=== PATIENT | male | born 1985 | race American Indian/Alaskan Native ===

== ENCOUNTER 2017-06-14 19:17 | Emergency (ER) | payer SELFPAY ==
--- NOTE | 2017-06-15 00:33 | Emergency Department Report ---
ED Laceration HPI - HPI Chief Complaint: Laceration/Recheck/Suture Stated Complaint: laceration lft pinky finger Time Seen by Provider: 06/15/17 00:28 Occurred When: Today (12 noon 06/14/2017) Location: Upper Extremity (left small finger laceration) Severity: mild (09/15) Tetanus Status: Unknown Laceration Symptoms: Yes Pain (small finger around the laceration site), No Foreign Body Sensation, No Numbness, No Weakness Other History: She reports that he cut is left pinky finger when he was opening a can today. He said he put pressure dressing on site. Pain is 1 out of 10 with movement. He is unsure of his tetanus status. Denies any numbness or tingling. ED Review of Systems ROS: Stated complaint: laceration lft pinky finger Other details as noted in HPI Comment: All other systems reviewed and negative Constitutional: no symptoms reported Respiratory: no symptoms reported Cardiovascular: denies: chest pain, palpitations, edema, syncope Gastrointestinal: denies: nausea, vomiting Musculoskeletal: arthralgia. denies: back pain, joint swelling, myalgia Skin: other (laceration to left small finger) Neurological: denies: headache, numbness, paresthesias ED Past Medical Hx - Past Medical History Previous Medical History?: No - Surgical History Past Surgical History?: No - Family History Family history: no significant - Social History Smoking Status: Current Every Day Smoker Substance Use Type: None, Marijuana - Medications Home Medications: Home Medications Medication Instructions Recorded Confirmed Last Taken Type Cephalexin [Keflex] 500 mg PO Q8HR #21 cap 06/15/17 Unknown Rx Ibuprofen [Motrin] 600 mg PO Q8H PRN #15 tablet 06/15/17 Unknown Rx Laceration Physical Exam - Exam General: Vital signs noted. No distress. Alert and acting appropriately. This is a 32-year-old male well-nourished well-developed in no acute distress. Extremity: Patient with full range of motion to all extremities, no joint deformities. No signs of tendon injury. 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 CV: S1, S2. Regular rate and rhythm. No murmur Lungs: Clear to auscultate bilaterally, no rhonchi wheezes or rales. Wound Length (cm): 2 (irregular and stellate) Laceration Location: Upper Extremity (small finger at mid phalanx) Laceration Exam: Yes Normal Distal CMS (clubbing, cyanosis or edema. +2 pulses in all extremities), No Foreign Body, No Exposed Tendon, Vessel, or Nerve, No Tendon Injury ED Course Vital Signs 06/14/17 19:25 Temperature 98.7 F Pulse Rate 76 Respiratory 18 Rate Blood Pressure 132/77 O2 Sat by Pulse 97 Oximetry - Reevaluation(s) Reevaluation #1: 06/15/17 01:39 Patient given Boostrix 0.5 mL in emergency room the update tetanus and Keflex 500 mg for prevention of infection. See procedure note for laceration repair. - Laceration /Wound Repair Left Medial Palm Finger Wound Location: upper extremity (left small finger at mid phalanx at palmar side ) Wound Length (cm): 2 Wound's Depth, Shape: superficial, irregular, stellate Wound Explored: clean Irrigated w/ Saline (ccs): 450 Betadine Prep?: Yes Anesthesia: 1% Lidocaine Volume Anesthetic (ccs): 1 Wound Debrided: moderate Wound Repaired With: sutures Suture Size/Type: 3:0, proline Number of Sutures: 8 Layer Closure?: No Sterile Dressing Applied?: Yes Progress: Sterile dry bulky dressing placed the site. ED Medical Decision Making - Medical Decision Making ED course: Pt with laceration to left small finger. Laceration repair under sterile procedure please refer to procedure note for detail. Patient has no sign of tendon injury and was told to return in 7-10 days for suture removal. Patient would pressure dressing to side and told to not use his left hand to do any vigorous activity for the next 72 hours. Patient was given Boostrix 0.5 mL to update tetanus and Keflex 500 mg by mouth to prevent infection. See procedure note for laceration repair. Patient discharged home in stable condition to return to ER in 7-10 days to have stitches removed. He voiced understanding the discharge diagnosis and treatment plan. Discharged home a prescription for Keflex and Motrin Critical care attestation.: If time is entered above; I have spent that time in minutes in the direct care of this critically ill patient, excluding procedure time. ED Disposition Clinical Impression: Finger pain, left Laceration of finger of left hand without foreign body without damage to nail Qualifiers: Encounter type: initial encounter Finger: little finger Qualified Code(s): S61.217A - Laceration without foreign body of left little finger without damage to nail, initial encounter Injury of finger, superficial Qualifiers: Encounter type: initial encounter Qualified Code(s): S60.949A - Unspecified superficial injury of unspecified finger, initial encounter Disposition: TO HOME OR SELFCARE Is pt being admited?: No Does the pt Need Aspirin: No Condition: Stable Instructions: Finger Laceration (ED) Additional Instructions: Please take antibiotic as prescribed Return to emergency room in 7-10 days to have stitches removed Keepaffected area clean and dry. Avoid vigorous activity to left hand for the next 72 hours Take Motrin as prescribed for pain Prescriptions: Cephalexin [Keflex] 500 mg PO Q8HR #21 cap Ibuprofen [Motrin] 600 mg PO Q8H PRN #15 tablet PRN Reason: Pain Referrals: [facility] [place] [Outside] - 2-3 Days return to, emergency room [Other] - 7-10 days (To have stitches removed) Forms: Accompanied Note, Work/School Release Form(ED)
[2017-06-15] MEDS ORDERED: XYLOCAINE 1% MPF 5 mL INFILTRATI ONE (00:34)
[2017-06-15] MEDS ORDERED: NACL 0.9% IR ONE (00:34)
[2017-06-15] MEDS ORDERED: BOOSTRIX IM ONE (00:34)
[2017-06-15] MEDS ORDERED: KEFLEX PO ONE ×2 (00:34)
[2017-06-15 11:30] VITALS: BP 166/86
== END 2017-06-15 01:55 | disposition home or self-care (01) ==
LOC: ED 19:17
DX: S61.217A Laceration without foreign body of left little finger without damage to nail, initial encounter (principal); F17.210 Nicotine dependence, cigarettes, uncomplicated; F12.10 Cannabis abuse, uncomplicated; W26.8XXA Contact with other sharp object(s), not elsewhere classified, initial encounter; Y93.89 Activity, other specified; Y92.89 Other specified places as the place of occurrence of the external cause; Y99.8 Other external cause status
CPT/HCPCS: 90471; 90715; 99282

== ENCOUNTER 2017-06-22 16:20 | Emergency (ER) | payer SELFPAY ==
[2017-06-22 17:01] VITALS: BP 110/66
--- NOTE | 2017-06-22 17:22 | Emergency Department Report ---
Suture/Staple Removal - HPI Chief Complaint: Laceration/Recheck/Suture Stated Complaint: SUTURE REMOVAL Time Seen by Provider: 06/22/17 17:11 When Sutures or Trey Placed: 8-10 Days Ago (left little finger) ED Review of Systems ROS: Stated complaint: SUTURE REMOVAL Other details as noted in HPI Comment: All other systems reviewed and negative Constitutional: denies: chills, fever Gastrointestinal: denies: nausea, vomiting Musculoskeletal: other (no decrease in ROM of L hand ). denies: joint swelling ED Past Medical Hx - Past Medical History Previous Medical History?: No - Surgical History Past Surgical History?: No - Social History Smoking Status: Current Some Day Smoker Substance Use Type: None - Medications Home Medications: Home Medications Medication Instructions Recorded Confirmed Last Taken Type Cephalexin [Keflex] 500 mg PO Q8HR #21 cap 06/15/17 Unknown Rx Ibuprofen [Motrin] 600 mg PO Q8H PRN #15 tablet 06/15/17 Unknown Rx Suture Removal Exam - Exam General: Vital signs noted. No distress. Alert and acting appropriately. Wound: No Pathologic Erythema, No Tenderness, No Drainage, No Pus, No Wound Dehiscence Other Systems: All other systems reviewed and are unremarkable. ED Course Vital Signs 06/22/17 16:58 Temperature 99.2 F Pulse Rate 70 Respiratory 16 Rate Blood Pressure 110/66 O2 Sat by Pulse 99 Oximetry - Procedure Description Procedures done: sutures removed from L little finger. wound remains intact. steristrips placed. - Pulse Oximetry Interpretation Digit-Finger Initial Pulse Oximetry Readin Actions Taken: none ED Recheck MDM - Differential Diagnosis Suture/Staple Removal Critical Care Time: No Critical care attestation.: If time is entered above; I have spent that time in minutes in the direct care of this critically ill patient, excluding procedure time. ED Disposition Clinical Impression: Encounter for removal of sutures Disposition: DC-01 TO HOME OR SELFCARE Is pt being admited?: No Does the pt Need Aspirin: No Condition: Stable Instructions: Suture Removal (ED) Additional Instructions: keep the steri strips clean and dry they should flake off in the next 3-5 days Referrals: PRIMARY CAREMD [Primary Care Provider] - 3-5 Days RAGHAV VELAZQUEZ MD [Staff Physician] - 3-5 Days Time of Disposition: 17:45
== END 2017-06-22 17:55 | disposition home or self-care (01) ==
LOC: ED 16:20
DX: S61.217D Laceration without foreign body of left little finger without damage to nail, subsequent encounter (principal); X58.XXXD Exposure to other specified factors, subsequent encounter; Z53.21 Procedure and treatment not carried out due to patient leaving prior to being seen by health care provider; F17.200 Nicotine dependence, unspecified, uncomplicated